=== PATIENT | male | born 1995 | race Caucasian/White ===

== ENCOUNTER → 2024-08-29 11:54 | Outpatient (REF) | payer OTHER, SELFPAY | LOC: PAVMRI 11:54 | PROVIDERS: ATTENDING PHYSICIAN Psychiatry & Neurology Neurology; FAMILY PHYSICIAN Family Medicine | DX: M54.12 Radiculopathy, cervical region (principal); M54.2 Cervicalgia | CPT/HCPCS: 72141 ==